=== PATIENT | male | born 1930 | race Caucasian/White ===

== ENCOUNTER → 2016-11-25 | Outpatient (CLI) | payer MEDICARE, BC ==
[~2016-11-25] MED LIST: ASPIRIN81 M2 PO; CIPRO250 M1 PO; HYTRIN5 M1 PO; NO MEDICATIONS; NORCO1 TAB 10/3 PO; TERAZOSIN HCL10 MG PO
--- NOTE | ~2016-11-25 | CT4 ---
[facility] A Service of [facility] RADIOLOGY TEXT RESULTS PATIENT: LILLIE FONTENOT LOCATION: [facility] : 34 UNIT #: [id number] AGE: [address]: Matthew Almaguer MD SEX: M ORDER DR: [id number] [facility] [address] [place], [place] [address] [id number] O MR#: [id number] Acc #: [id number] NAME: LILLIE FONTENOT : 1930 SEX: M STUDY DATE/TIME: 11/25/2016 11:30 UNIT: [facility] ROOM: STUDY DESCRIPTION: CT Abd and Pelv Wo Cont Attending Physician: Matthew Almaguer M.D. Referring Physician: Matthew Almaguer M.D. Ordering Physician: Matthew Almaguer M.D. Primary Care Physician: Jony Villalobos M.D. MEDICAL IMAGING REPORT This report is preliminary unless electronic signature is present EXAM CT abdomen and pelvis without contrast INDICATIONS Follow up bladder cancer. Observation for metastatic disease. TECHNIQUE CT of the abdomen and pelvis was performed without contrast. Coronal and sagittal reformatted images obtained. This CT exam was performed with one or more of the following radiation dose reduction techniques: automatic exposure control, adjustment of mA and/or kV according to patient size, and iterative reconstruction. COMPARISON STUDIES Comparison is made with 02/07/2016. FINDINGS The liver is unremarkable. The gallbladder and spleen are unremarkable. There is a tiny non-obstructing stone in the lower pole of the left kidney. There are a few punctate non-obstructing stones in the right kidney. Stable adrenal adenoma on the left. Right adrenal gland is unremarkable. The pancreas is unremarkable. 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 No evidence for bowel obstruction. Prostatic calcifications. Stable bladder stone posteriorly. No evidence for pelvic mass or lymphadenopathy. Bone windows demonstrate degenerative changes of the lower lumbar spine. IMPRESSION [facility] A Service of [facility] RADIOLOGY TEXT RESULTS PATIENT: LILLIE FONTENOT LOCATION: [facility] : 32 UNIT #: [id number] AGE: [address]: Matthew Almaguer MD SEX: M ORDER DR: 1. No evidence of metastatic disease. 2. Stable iliac artery aneurysms. Dictated by... Cuong Tyson M.D. THIS IS AN ELECTRONICALLY VERIFIED REPORT Cuong Tyson M.D. at 11/26/2016 4:59 PM ARS/jo ann TD: 11/26/2016 16:05 JOB #: [id number] MEDICAL IMAGING REPORT Page 1 of 1 COPY
--- NOTE | ~2016-11-25 | CT57 ---
[facility] A Service of [facility] RADIOLOGY TEXT RESULTS PATIENT: LILLIE FONTENOT LOCATION: [facility] : 32 UNIT #: [id number] AGE: [address]: Matthew Almaguer MD SEX: M ORDER DR: [id number] [facility] [address] [place], [place] [address] [id number] O MR#: [id number] Acc #: [id number] NAME: LILLIE FONTENOT : 1930 SEX: M STUDY DATE/TIME: 11/25/2016 11:30 UNIT: [facility] ROOM: STUDY DESCRIPTION: CT Chest Wo Cont Attending Physician: Matthew Almaguer M.D. Referring Physician: Matthew Almaguer M.D. Ordering Physician: Matthew Almaguer M.D. Primary Care Physician: Jony Villalobos M.D. MEDICAL IMAGING REPORT This report is preliminary unless electronic signature is present EXAM CT scan of the chest without contrast INDICATION Followup bladder cancer. Routine surveillance. TECHNIQUE CT of the chest was performed without contrast. Coronal and sagittal reformatted images were obtained. This CT exam was performed with one or more of the following radiation dose reduction techniques: automatic exposure control, adjustment of mA and/or kV according to patient size, and iterative reconstruction. COMPARISON 02/07/2016 FINDINGS There is a stable ground-glass density in the right upper lobe. It measures about 2.1 x 0.9 cm. It is not significantly changed compared with the previous study. There is increased atelectasis or scarring in the dependent portions of the lung bases. No new pulmonary nodule. No evidence for lymphadenopathy. Coronary artery calcifications. Please refer to separately dictated CT of the abdomen for findings below the diaphragm. Bone windows are stable. No suspicious osseous lesion. IMPRESSION 1. Stable ground-glass density in the right lung apex. 2. No mentioned above, accounting for increased atelectasis/scarring in the lung bases the ground-glass density in the right lower lobe is also not significantly changed. 3. No definite evidence of metastatic disease to the chest. STS. [facility] A Service of [facility] RADIOLOGY TEXT RESULTS PATIENT: LILLIE FONTENOT LOCATION: [facility] : 32 UNIT #: [id number] AGE: [address]: Matthew Almaguer MD SEX: M ORDER DR: Dictated by... Cuong Tyson M.D. THIS IS AN ELECTRONICALLY VERIFIED REPORT Cuong Tyson M.D. at 11/26/2016 4:59 PM Danni TD: 11/26/2016 15:52 JOB #: [id number] MEDICAL IMAGING REPORT Page 1 of 1 COPY
== END | disposition home or self-care (01) ==
LOC: CCAT 09:32
DX: C67.3 Malignant neoplasm of anterior wall of bladder (principal); J98.4 Other disorders of lung; I72.3 Aneurysm of iliac artery
CPT/HCPCS: 71250; 74176